=== PATIENT | female | born 1950 | race Caucasian/White ===

== ENCOUNTER 2019-06-15 16:30 | Emergency (ER) | payer MEDICARE ==
[~2019-06-15] VITALS: Ht 152.4 cm; Wt 52.3 kg
[2019-06-15] MEDS ORDERED: ipratropium/albuterol 3ml nebule NEB ONE (16:40)
[2019-06-15] MEDS ORDERED: oxyCODONE/APAP 5-325mg tablet PO ONE (16:40)
[2019-06-15] MEDS ORDERED: predniSONE 20 mg tablet PO ONE (16:40)
[2019-06-15 17:10] LABS: BASOPHILS % (AUTO) 0.4 % (0-1); EOSINOPHILS # (AUTO) 0.1 X10'3 (0-0.9); EOSINOPHILS % (AUTO) 1.1 % (0-6); HEMATOCRIT 36.1 % (35.0-45.0); HEMOGLOBIN 11.9 g/dl (12.0-16.0); LYMPHOCYTES # (AUTO) 2.9 X10'3 (1.1-4.8); LYMPHOCYTES % (AUTO) 42.5 % (21-51); MEAN CORPUSCULAR HEMOGLOBIN 25.7 PG (27.0-31.0); MEAN CORPUSCULAR HGB CONC 32.8 g/dL (33.0-36.5); MEAN CORPUSCULAR VOLUME 78.3 FL (78-98); MEAN PLATELET VOLUME 7.7 FL (7.4-10.4); MONOCYTES # (AUTO) 0.6 X10'3 (0-0.9); MONOCYTES % (AUTO) 8.4 % (2-12); NEUTROPHILS # (AUTO) 3.2 X10'3 (1.8-7.7); NEUTROPHILS % (AUTO) 47.6 % (42-75); PLATELET COUNT 353 X10'3 (140-440); RED BLOOD COUNT 4.62 X10'6 (4.20-5.60); RED CELL DISTRIBUTION WIDTH 19.2 % (11.5-14.5); WHITE BLOOD COUNT 6.8 X10'3 (4.5-11.0)
[2019-06-15 17:20] LABS: ALANINE AMINOTRANSFERASE 13 U/L (12-78); ALBUMIN/GLOBULIN RATIO 0.6 (1.1-1.5); ALKALINE PHOSPHATASE 119 IU/L (46-116); ANION GAP 6 (8-16); ASPARTATE AMINO TRANSFERASE 20 U/L (10-37); BILIRUBIN,TOTAL 0.2 MG/DL (0.1-1.0); BLOOD UREA NITROGEN 11 MG/DL (7-18); BUN/CREATININE RATIO 16.4 (6.6-38.0); CALCIUM 8.6 MG/DL (8.5-10.1); CHLORIDE 106 MMOL/L (99-107); CREATININE 0.67 MG/DL (0.40-0.90); GLUCOSE 111 MG/DL (70-104); SODIUM 143 MMOL/L (135-145); TOTAL CARBON DIOXIDE 31.1 MMOL/L (24-32); TOTAL PROTEIN 7.7 G/DL (6.4-8.2); eGFR 88 ML/MIN
[2019-06-15 17:22] LABS: POTASSIUM 2.9 MMOL/L (3.5-5.1)
[2019-06-15] MEDS ORDERED: potassium Cl 20 mEq SR tablet PO STA (17:26)
[2019-06-15] MEDS ORDERED: GUAI1TBM19 PO (17:29)
[2019-06-15] MEDS ORDERED: AMOX-419 PO (17:29)
[2019-06-15] MEDS ORDERED: PRED20TA PO (17:29)
[2019-06-15] MEDS ORDERED: amox tr/potassium clavulanate 875/125mg TAB PO ONE (17:35)
[2019-06-15 17:44] VITALS: BP 123/74
[2019-06-15 18:00] LABS: ANISOCYTOSIS 2+; MICROCYTOSIS 1+; PLATELET ESTIMATE NORMAL
[2019-06-15 18:01] LABS: ELLIPTOCYTES FEW; HYPOCHROMASIA 1+; STOMATOCYTES 1+
== END 2019-06-15 18:02 | disposition home or self-care (01) ==
LOC: ER 16:32
DX: J20.9 Acute bronchitis, unspecified (principal); J44.1 Chronic obstructive pulmonary disease with (acute) exacerbation; E87.6 Hypokalemia; F41.9 Anxiety disorder, unspecified; Z98.890 Other specified postprocedural states; Z88.8 Allergy status to other drugs, medicaments and biological substances; Z79.2 Long term (current) use of antibiotics; Z79.899 Other long term (current) drug therapy
CPT/HCPCS: 36415; 71046; 80053; 85025; 94640; 99284; J7512; 94760

== ENCOUNTER 2019-07-02 16:45 | Inpatient (IN) | payer MEDICARE ==
[~2019-07-02] VITALS: Ht 152.4 cm; Wt 51.8 kg
[~2019-07-02 16:45] MED LIST: GUAI1TBM19 PO
[2019-07-02] MEDS ORDERED: CefTRIAXone/D5W-Rocephin 1gm 50 ML IV ONE (17:30)
[2019-07-02] MEDS ORDERED: azithromycin/NS 500mg/250ml 250 ML IV ONE (17:30)
[2019-07-02] MEDS ORDERED: methylPREDNISolone sod succ 125mg/2ml vial IV ONE (17:30)
[2019-07-02] MEDS ORDERED: normal saline 1000ML IV soln IVB ONE (17:30)
[2019-07-02 17:32] LABS: BASOPHILS % (AUTO) 0.6 % (0-1); EOSINOPHILS # (AUTO) 0.1 X10'3 (0-0.9); EOSINOPHILS % (AUTO) 1.1 % (0-6); HEMATOCRIT 32.2 % (35.0-45.0); HEMOGLOBIN 10.5 g/dl (12.0-16.0); LYMPHOCYTES # (AUTO) 2.4 X10'3 (1.1-4.8); LYMPHOCYTES % (AUTO) 36.8 % (21-51); MEAN CORPUSCULAR HEMOGLOBIN 25.6 PG (27.0-31.0); MEAN CORPUSCULAR HGB CONC 32.6 g/dL (33.0-36.5); MEAN CORPUSCULAR VOLUME 78.6 FL (78-98); MEAN PLATELET VOLUME 7.6 FL (7.4-10.4); MONOCYTES # (AUTO) 0.7 X10'3 (0-0.9); MONOCYTES % (AUTO) 10.4 % (2-12); NEUTROPHILS # (AUTO) 3.4 X10'3 (1.8-7.7); NEUTROPHILS % (AUTO) 51.1 % (42-75); PLATELET COUNT 344 X10'3 (140-440); RED BLOOD COUNT 4.09 X10'6 (4.20-5.60); RED CELL DISTRIBUTION WIDTH 18.3 % (11.5-14.5); WHITE BLOOD COUNT 6.6 X10'3 (4.5-11.0)
[2019-07-02 17:41] LABS: ALANINE AMINOTRANSFERASE 11 U/L (12-78); ALBUMIN 2.6 G/DL (3.4-5.0); ALBUMIN/GLOBULIN RATIO 0.5 (1.1-1.5); ALKALINE PHOSPHATASE 131 IU/L (46-116); ANION GAP 6 (8-16); ASPARTATE AMINO TRANSFERASE 15 U/L (10-37); BILIRUBIN,TOTAL 0.2 MG/DL (0.1-1.0); BLOOD UREA NITROGEN 10 MG/DL (7-18); BUN/CREATININE RATIO 16.1 (6.6-38.0); CHLORIDE 103 MMOL/L (99-107); CREATININE 0.62 MG/DL (0.40-0.90); GLUCOSE 90 MG/DL (70-104); POTASSIUM 3.2 MMOL/L (3.5-5.1); SODIUM 139 MMOL/L (135-145); TOTAL CARBON DIOXIDE 29.9 MMOL/L (24-32); TOTAL PROTEIN 7.4 G/DL (6.4-8.2); eGFR > 90 ML/MIN
[2019-07-02] MEDS ORDERED: morphine 2 MG/ML inj. syringe IV ONE (17:50)
[2019-07-02] MEDS ORDERED: potassium Cl 20 mEq SR tablet PO ONE (17:50)
[2019-07-02 18:06] LABS: C-REACTIVE PROTEIN 4.04 MG/DL (0.0-0.5); LACTATE DEHYDROGENASE 149 U/L (81-234)
--- NOTE | 2019-07-02 19:46 | NUR ---
DID NOT GIVE METHYLPREDNISONE DUE TO POSS COVID
[2019-07-02] MEDS ORDERED: ondansetron/PF 4mg/2ml inj IV PRN (20:00)
[2019-07-02] MEDS ORDERED: acetaminophen 325mg tablet PO PRN (20:00)
[2019-07-02] MEDS ORDERED: pregabalin 75mg capsule PO ONE (20:40)
[2019-07-02] MEDS ORDERED: FLUC150T66 PO (20:52)
[2019-07-02] MEDS ORDERED: ALB0.5UD IH (20:52)
[2019-07-02] MEDS ORDERED: SUMA25TA35 PO (20:52)
[2019-07-02] MEDS ORDERED: DESV100T12 PO (20:52)
[2019-07-02] MEDS ORDERED: temazepam 15mg capsule PO PRN (21:00)
[2019-07-02] MEDS ORDERED: ESOM20CA PO (21:10)
[2019-07-02] MEDS ORDERED: METH500T6 PO (21:10)
[2019-07-02] MEDS ORDERED: HYDR-4353 PO (21:10)
[2019-07-02] MEDS ORDERED: MONT10TA26 PO (21:10)
[2019-07-02] MEDS ORDERED: UMEC1DIS (21:10)
[2019-07-02] MEDS ORDERED: PROM25TA14 (21:10)
[2019-07-02] MEDS ORDERED: PREG300C PO (21:10)
[2019-07-02] MEDS ORDERED: POTA10TA19 PO (21:10)
[2019-07-02] MEDS ORDERED: CLON-527 PO (21:10)
[2019-07-02] MEDS ORDERED: SUMAtriptan 25 MG tablet PO PRN (21:40)
[2019-07-02] MEDS ORDERED: albuterol 2.5 MG/3 ML nebule NEB PRN (21:40)
[2019-07-02] MEDS ORDERED: pantoprazole 40 MG vial IV ONE (21:45)
[2019-07-02] MEDS: heparin, porcine 5000 units/ml vial SQ SCH (22:04)
--- NOTE | 2019-07-02 22:30 | NUR ---
pt arrived to PCU unit from ER via gurcheryl, pt is alert and oriented, pt does not seem to be in any respiratory distress at the moment, pt is on 3L NC at 95%, pt does not have a fever, will continue to monitor pt
[2019-07-02 22:45] VITALS: BP 126/54
[2019-07-03 02:00] VITALS: BP 113/49
[2019-07-03 05:23] LABS: ALBUMIN 2.5 G/DL (3.4-5.0); ANION GAP 5 (8-16); BLOOD UREA NITROGEN 9 MG/DL (7-18); CALCIUM 9.5 MG/DL (8.5-10.1); CHLORIDE 107 MMOL/L (99-107); CREATININE 0.53 MG/DL (0.40-0.90); GLUCOSE 87 MG/DL (70-104); POTASSIUM 4.1 MMOL/L (3.5-5.1); SODIUM 141 MMOL/L (135-145); TOTAL CARBON DIOXIDE 28.8 MMOL/L (24-32); eGFR > 90 ML/MIN
[2019-07-03 05:45] LABS: BASOPHILS # (AUTO) 0.1 X10'3 (0-0.2); BASOPHILS % (AUTO) 0.9 % (0-1); EOSINOPHILS # (AUTO) 0.1 X10'3 (0-0.9); EOSINOPHILS % (AUTO) 1.2 % (0-6); HEMOGLOBIN 10.3 g/dl (12.0-16.0); LYMPHOCYTES # (AUTO) 2.9 X10'3 (1.1-4.8); LYMPHOCYTES % (AUTO) 46.5 % (21-51); MEAN CORPUSCULAR HEMOGLOBIN 25.5 PG (27.0-31.0); MEAN CORPUSCULAR HGB CONC 32.1 g/dL (33.0-36.5); MEAN CORPUSCULAR VOLUME 79.2 FL (78-98); MEAN PLATELET VOLUME 8.2 FL (7.4-10.4); MONOCYTES # (AUTO) 0.6 X10'3 (0-0.9); MONOCYTES % (AUTO) 9.2 % (2-12); NEUTROPHILS # (AUTO) 2.6 X10'3 (1.8-7.7); NEUTROPHILS % (AUTO) 42.2 % (42-75); PLATELET COUNT 334 X10'3 (140-440); RED BLOOD COUNT 4.04 X10'6 (4.20-5.60); RED CELL DISTRIBUTION WIDTH 18.7 % (11.5-14.5); WHITE BLOOD COUNT 6.2 X10'3 (4.5-11.0)
--- NOTE | 2019-07-03 06:13 | NUR ---
Problems reprioritized. Patient report given, questions answered & plan of care reviewed with Kai PRABHAKAR .
--- NOTE | 2019-07-03 06:26 | NUR ---
Patient in room PCU 3008. I have received report from Agueda PRABHAKAR and had the opportunity to ask questions and assume patient care.
[2019-07-03 07:22] LABS: ANISOCYTOSIS 2+; HYPOCHROMASIA 1+; MICROCYTOSIS 1+; PLATELET ESTIMATE NORMAL; POLYCHROMASIA 1+; STOMATOCYTES 1+; TARGET CELLS FEW
[2019-07-03] MEDS ORDERED: DESVENLAFAXINE PO SCH (08:00)
[2019-07-03 08:33] VITALS: BP 114/42
[2019-07-03] MEDS: heparin, porcine 5000 units/ml vial SQ SCH ×2 (08:36→21:13)
[2019-07-03] MEDS: methylPREDNISolone sod succ/PF 40mg inj. IV SCH ×2 (08:36→21:12)
[2019-07-03] MEDS: potassium chloride 10mEq ER tablet PO SCH (08:37)
[2019-07-03] MEDS: cyclobenzaprine 10mg tablet PO SCH ×2 (08:37)
[2019-07-03] MEDS: montelukast 10mg tablet PO SCH (08:37)
[2019-07-03] MEDS: pregabalin 75mg capsule PO SCH ×2 (08:37→21:12)
[2019-07-03] MEDS: clonazePAM 1mg tablet PO SCH ×2 (08:37→21:12)
--- NOTE | 2019-07-03 10:34 | NUR ---
Patient in room PCU 3008. I have received report from Kai PRABHAKAR and had the opportunity to ask questions and assume patient care.
[2019-07-03 11:00] VITALS: BP 104/55
[2019-07-03] MEDS: HYDROcodone/acetaminophen 10/325mg tab PO PRN ×2 (11:15→21:15)
--- NOTE | 2019-07-03 11:44 | NUR ---
PAGER ID: [phone] MESSAGE: Re: Angela Bran, Room: 3008. Pt takes Methocarbamol 500mg q8hrs for muscle spasms at home. She has Flexeril 10mg q8hrs scheduled but has had a reaction to it in past. Can we order Methocarbamol instead of Flexeril? -[facility] [id number] -Dr. Alejandro paged concerning Pt wanting Methocarbamol instead of flexeril.
[2019-07-03] MEDS: venlafaxine 25mg tablet PO SCH ×2 (12:47→22:08)
--- NOTE | 2019-07-03 14:12 | NUR ---
PAGER ID: [phone] MESSAGE: Re: Angela Bran, Room: 3008. Confirmed with Pt's pharmacy that she does take Methocarbamol 500mg q8hrs for muscle spasms -[facility] #[id number] Dr. Alejandro paged concerning Pt's home dose of Methocarbamol 500mg Q8hrs.
[2019-07-03 15:00] VITALS: BP 124/59
--- NOTE | 2019-07-03 16:11 | NUR ---
Problems reprioritized. Patient report given, questions answered & plan of care reviewed with Tania PRABHAKAR.
[2019-07-03] MEDS ORDERED: azithromycin/NS 500mg/250ml 250 ML IV SCH (17:00)
[2019-07-03 18:00] VITALS: BP 123/63
[2019-07-03] MEDS ORDERED: CefTRIAXone/D5W-Rocephin 1gm 50 ML IV SCH (18:00)
--- NOTE | 2019-07-03 18:20 | NUR ---
Patient in room PCU 3023. I have received report from AKI Taylor and had the opportunity to ask questions and assume patient care.
--- NOTE | 2019-07-03 18:21 | NUR ---
Problems reprioritized. Patient report given, questions answered & plan of care reviewed with Joana PRABHAKAR.
[2019-07-03] MEDS: lactobacillus rhamnosus 10,000 MMU CELLS/CAPSULE PO SCH (21:12)
[2019-07-03 22:00] VITALS: BP 130/64
--- NOTE | 2019-07-03 22:44 | NUR ---
PAGER ID: [phone] MESSAGE: [id number] Josefina Bran: diarrhea for 2 days and says Maddy works for her. Addendum: 07/04/19 at 0100 by Joana Cardona RN MD said to follow up with [facility] doctor for diarrhea. No new orders at this time. Will pass on to handoff nurse.
[2019-07-03] MEDS: METHOCARBAMOL 500MG PO SCH (23:11)
[2019-07-04 02:00] VITALS: BP 143/63
[2019-07-04 06:00] LABS: BASOPHILS % (AUTO) 0.2 % (0-1); EOSINOPHILS % (AUTO) 0 % (0-6); HEMATOCRIT 33.6 % (35.0-45.0); HEMOGLOBIN 10.7 g/dl (12.0-16.0); LYMPHOCYTES # (AUTO) 1.3 X10'3 (1.1-4.8); LYMPHOCYTES % (AUTO) 20.8 % (21-51); MEAN CORPUSCULAR HGB CONC 31.8 g/dL (33.0-36.5); MEAN CORPUSCULAR VOLUME 78.7 FL (78-98); MEAN PLATELET VOLUME 7.9 FL (7.4-10.4); MONOCYTES # (AUTO) 0.2 X10'3 (0-0.9); MONOCYTES % (AUTO) 3.9 % (2-12); NEUTROPHILS # (AUTO) 4.7 X10'3 (1.8-7.7); NEUTROPHILS % (AUTO) 75.1 % (42-75); PLATELET COUNT 387 X10'3 (140-440); RED BLOOD COUNT 4.28 X10'6 (4.20-5.60); RED CELL DISTRIBUTION WIDTH 18.3 % (11.5-14.5); WHITE BLOOD COUNT 6.3 X10'3 (4.5-11.0)
[2019-07-04 06:15] LABS: ALBUMIN 2.6 G/DL (3.4-5.0); ANION GAP 8 (8-16); BLOOD UREA NITROGEN 7 MG/DL (7-18); BUN/CREATININE RATIO 14.3 (6.6-38.0); CALCIUM 10.2 MG/DL (8.5-10.1); CHLORIDE 105 MMOL/L (99-107); CREATININE 0.49 MG/DL (0.40-0.90); GLUCOSE 142 MG/DL (70-104); POTASSIUM 3.7 MMOL/L (3.5-5.1); SODIUM 142 MMOL/L (135-145); TOTAL CARBON DIOXIDE 29.2 MMOL/L (24-32); eGFR > 90 ML/MIN
--- NOTE | 2019-07-04 06:24 | NUR ---
Problems reprioritized. Patient report given, questions answered & plan of care reviewed with AKI Mendez.
[2019-07-04 07:00] VITALS: BP 142/59
--- NOTE | 2019-07-04 07:24 | NUR ---
Patient in room PCU 3023. I have received report from fabiola PRABHAKAR and had the opportunity to ask questions and assume patient care.
[2019-07-04] MEDS: METHOCARBAMOL 500MG PO SCH (08:00)
[2019-07-04] MEDS ORDERED: LEVO500T2 PO (08:42)
[2019-07-04] MEDS: methylPREDNISolone sod succ/PF 40mg inj. IV SCH (08:58)
[2019-07-04] MEDS: montelukast 10mg tablet PO SCH (09:01)
[2019-07-04] MEDS: lactobacillus rhamnosus 10,000 MMU CELLS/CAPSULE PO SCH (09:01)
[2019-07-04] MEDS: venlafaxine 25mg tablet PO SCH (09:01)
[2019-07-04] MEDS: pregabalin 75mg capsule PO SCH (09:01)
[2019-07-04] MEDS: potassium chloride 10mEq ER tablet PO SCH (09:01)
[2019-07-04] MEDS: clonazePAM 1mg tablet PO SCH (09:01)
[2019-07-04] MEDS: heparin, porcine 5000 units/ml vial SQ SCH (09:02)
--- NOTE | 2019-07-04 09:03 | NUR ---
Pt. is being discharged and her robaxin was never brought in therefore she did not receive that this AM during her med pass. made aware.
--- NOTE | 2019-07-04 09:31 | NUR ---
Pt. was cleared to discharge home. Pt. reports feeling much better and is excited to discharge home. Vital signs are stable at time of discharge. New prescription for Levaquin was called into [phone] per the patients request. Patient was transported by yellow cab since she did not have a ride. Pt. stated her daughter would be there to help care for her. Pt. has been sating within normal range on RA even with activity. PIV removed. Pt. left in stable condition.
== END 2019-07-04 09:38 | disposition home or self-care (01) | DRG 192 ==
LOC: ER 16:45 → ED HOLD 20:00 → UNDOADMIN 20:12 → ED HOLD 22:19 → PCU 3S 22:19
PROVIDERS: ADMIT Internal Medicine; ATTEND Internal Medicine
DX: J44.1 Chronic obstructive pulmonary disease with (acute) exacerbation (principal); J44.0 Chronic obstructive pulmonary disease with (acute) lower respiratory infection; F17.210 Nicotine dependence, cigarettes, uncomplicated; J84.10 Pulmonary fibrosis, unspecified; M79.7 Fibromyalgia; F32.9 Major depressive disorder, single episode, unspecified; F41.9 Anxiety disorder, unspecified; G43.909 Migraine, unspecified, not intractable, without status migrainosus; G89.29 Other chronic pain; K21.9 Gastro-esophageal reflux disease without esophagitis; Z89.512 Acquired absence of left leg below knee; Z90.710 Acquired absence of both cervix and uterus; Z88.2 Allergy status to sulfonamides; Z88.8 Allergy status to other drugs, medicaments and biological substances; Z03.818 Encounter for observation for suspected exposure to other biological agents ruled out
CPT/HCPCS: 36415; 71045; 80048; 80053; 83605; 83615; 83880; 84484; 85025; 85610; 86140; 87040; 87081; 87635; 93005; 93306; 96365; 96375; 99285; C9113; G0378; J0456; J0696; J1644; J2270; J2920; J7030

== ENCOUNTER 2022-12-08 21:47 | Inpatient (IN) | payer MEDICARE, MEDICAID ==
[~2022-12-08] VITALS: Ht 165.1 cm; Wt 72.7 kg
[~2022-12-08 21:47] MED LIST changes: +ALB0.5UD IH; +CLON-527 PO; +DESV100T12 PO; +ESOM20CA PO; +HYDR-4353 PO; +METH-797 PO; +MONT-40 PO; +POTA-192 PO; +PREG300C PO; +PROM25TA14; +SUMA25TA35 PO; +UMEC1DIS
--- NOTE | 2022-12-08 23:00 | NUR ---
unable to draw pt's blood d/t hard stick. aware.
[2022-12-08 23:26] LABS: ALANINE AMINOTRANSFERASE 33 U/L (12-78); ALBUMIN 2.8 G/DL (3.4-5.0); ALBUMIN/GLOBULIN RATIO 0.7 (1.1-1.5); ALKALINE PHOSPHATASE 128 IU/L (46-116); ANION GAP 7 (8-16); ASPARTATE AMINO TRANSFERASE 43 U/L (10-37); BILIRUBIN,TOTAL 0.2 MG/DL (0.1-1.0); BLOOD UREA NITROGEN 13 MG/DL (7-18); BUN/CREATININE RATIO 16.3 (10.0-20.0); CHLORIDE 105 MMOL/L (99-107); GLUCOSE 82 MG/DL (70-104); POTASSIUM 3.2 MMOL/L (3.5-5.1); SODIUM 139 MMOL/L (135-145); TOTAL PROTEIN 6.8 G/DL (6.4-8.2); eCRCL 57 ML/MIN; eGFR 71 ML/MIN
[2022-12-08 23:34] LABS: C-REACTIVE PROTEIN 5.34 MG/DL (0.0-0.5); ETHANOL < 10 MG/DL (<10); MAGNESIUM 2.2 MG/DL (1.5-2.4); PRO BRAIN NATRIURETIC PEPTIDE 279 PG/ML (0-125); SALICYLATE 3.2 MG/DL (4.0-20.0)
[2022-12-08 23:35] LABS: BILIRUBIN,URINE NEGATIVE (Neg); CLARITY,URINE CLEAR (Clear); COLOR,URINE STRAW (Yellow); GLUCOSE, URINE NEGATIVE (Neg); KETONES,URINE NEGATIVE (Neg); LEUKOCYTE ESTERASE ,URINE NEGATIVE (Neg); NITRITES, URINE NEGATIVE (Neg); OCCULT BLOOD,URINE TRACE-INTACT (Neg); PROTEIN,URINE NEGATIVE (Neg); UROBILINOGEN,URINE 0.2 E.U/dL (0.2-1.0)
[2022-12-08 23:37] LABS: BASOPHILS # (AUTO) 0.1 X10'3 (0-0.2); BASOPHILS % (AUTO) 0.6 % (0-1); EOSINOPHILS # (AUTO) 0.1 X10'3 (0-0.9); EOSINOPHILS % (AUTO) 0.9 % (0-6); HEMATOCRIT 39.7 % (35.0-45.0); LYMPHOCYTES # (AUTO) 3.5 X10'3 (1.1-4.8); LYMPHOCYTES % (AUTO) 44.2 % (21-51); MEAN CORPUSCULAR HEMOGLOBIN 27.5 PG (27.0-31.0); MEAN CORPUSCULAR HGB CONC 32.7 g/dL (33.0-36.5); MEAN PLATELET VOLUME 9.4 FL (7.4-10.4); MONOCYTES # (AUTO) 1.1 X10'3 (0-0.9); MONOCYTES % (AUTO) 13.1 % (2-12); NEUTROPHILS # (AUTO) 3.3 X10'3 (1.8-7.7); NEUTROPHILS % (AUTO) 41.2 % (42-75); PLATELET COUNT 161 X10'3 (140-440); RED BLOOD COUNT 4.72 X10'6 (4.20-5.60); RED CELL DISTRIBUTION WIDTH 17.4 % (11.5-14.5)
[2022-12-08 23:38] LABS: ACETAMINOPHEN < 2.0 UG/ML (10-30)
[2022-12-08 23:39] LABS: URINE AMPHETAMINE SCREEN NEGATIVE (Neg); URINE BARBITUATE SCREEN NEGATIVE (Neg); URINE BENZODIAZEPINES SCREEN NEGATIVE (Neg); URINE CANNABINOID SCREEN POSITIVE (Neg); URINE COCAINE SCREEN NEGATIVE (Neg); URINE METHADONE SCREEN NEGATIVE (Neg); URINE OPIATE SCREEN POSITIVE (Neg); URINE PHENCYCLIDINE SCREEN NEGATIVE (Neg)
[2022-12-08 23:46] LABS: UA COLLECTION TYPE STRAIGHT CATH
[2022-12-08 23:47] LABS: SQUAMOUS EPITHELIAL CELL,UR NONE SEEN /LPF (FEW)
[2022-12-08 23:48] LABS: BACTERIA,URINE FEW /HPF (Neg); RBC,URINE 0-2 /HPF (0-2); WBC,URINE NONE SEEN /HPF (0-4)
[2022-12-09 03:21] LABS: APTT 32 SECONDS (22-32); INR 1.1 INR
[2022-12-09 03:22] LABS: PROTHROMBIN TIME 11.9 SECONDS (9.0-12.0)
[2022-12-09] MEDS ORDERED: magnesium 4gm in 100ml NS 100 ML IV PRN (04:05)
[2022-12-09] MEDS ORDERED: mag hydrox/Alum hydrox/simeth 30ml oral suspension PO PRN (04:05)
[2022-12-09] MEDS ORDERED: magnesium 2GM in 50ml NS 50 ML IV PRN (04:05)
[2022-12-09] MEDS ORDERED: magnesium hydroxide 30ml (MOM) UD suspension PO PRN (04:05)
[2022-12-09] MEDS ORDERED: diphenhydrAMINE 25mg capsule PO PRN (04:05)
[2022-12-09] MEDS ORDERED: metoclopramide 5 mg/ml inj IV PRN (04:05)
[2022-12-09] MEDS ORDERED: acetaminophen 650mg rectal suppository RC PRN (04:05)
[2022-12-09] MEDS ORDERED: bisacodyl 10mg suppository rectal RC PRN (04:05)
[2022-12-09] MEDS ORDERED: diphenhydrAMINE 50 mg/ml inj IV PRN (04:05)
[2022-12-09] MEDS ORDERED: acetaminophen 325mg tablet PO PRN ×2 (04:05)
[2022-12-09] MEDS ORDERED: magnesium Cl slow-release 64mg tablet PO PRN (04:05)
[2022-12-09] MEDS ORDERED: potassium Cl 40MEQ/1/2NS 520ml 520 ML IV PRN (04:05)
[2022-12-09] MEDS ORDERED: ondansetron 4mg rapidly disintigrating tab PO PRN (04:05)
[2022-12-09] MEDS ORDERED: potassium Cl 20 mEq SR tablet PO PRN ×2 (04:05)
[2022-12-09] MEDS: potassium Cl 20mEq in NS 1,000 ML IV SCH ×2 (04:21→15:26)
[2022-12-09 04:51] LABS: D-DIMER 2.16 MG/L FEU (0-0.50)
[2022-12-09 05:03] LABS: HEMOGLOBIN A1C 5.7 % (4.5-6.2)
[2022-12-09 05:06] LABS: CREATINE KINASE 542 U/L (26-192); LIPASE < 50 U/L (73-393); MAGNESIUM 2.1 MG/DL (1.5-2.4); PHOSPHORUS 3.2 MG/DL (2.3-4.5); POTASSIUM 3.1 MMOL/L (3.5-5.1); PRO BRAIN NATRIURETIC PEPTIDE 350 PG/ML (0-125); THYROID STIMULATING HORMONE 0.37 ulU/ml (0.34-4.50)
--- NOTE | 2022-12-09 05:22 | NUR ---
UNABLE TO DRAW PT LA & BC D/T BEING A HARD STICK. MD AWARE, WILL LET NEXT NURSE KNOW TO DRAW BEFORE ADMIN'ING ANY ABX.
[2022-12-09] MEDS: K and/or MAG REPLACEMENT MC SCH ×2 (08:00→19:32)
[2022-12-09] MEDS: docusate sod 100mg capsule PO SCH ×2 (08:00→20:00)
[2022-12-09] MEDS: heparin, porcine 5000 units/ml vial SQ SCH ×2 (09:45→20:07)
--- NOTE | 2022-12-09 13:25 | NUR ---
Note dariojunior in EDM - 12/09/22 at 1337 by LUIGIZA Reported to Dr. Alejandro pts temp 101.1 during blood transfusion. Pt is without any other transfusion reaction sxs and has been having fevers for quite a while now. Pt to receive prn tylenol PO dose now and to continue transfusion. Transfusion to be discontinued if pt developes rash, flank pain or associated sxs with transfusiona and to receive IV benadryl.
[2022-12-09] MEDS: HYDROcodone/acetaminophen 5mg/325mg tablet PO PRN ×2 (14:04→20:08)
[2022-12-09] MEDS ORDERED: potassium Cl 40MEQ/1/2NS 520ml 520 ML IV ONE (14:05)
[2022-12-09] MEDS: ondansetron/PF 4mg/2ml inj IV PRN (14:10)
[2022-12-09] MEDS ORDERED: CLON1TAB12 PO (15:52)
[2022-12-09] MEDS ORDERED: PREG300C20 PO (15:52)
--- NOTE | 2022-12-09 16:00 | NUR ---
REPORT GIVEN TO AKI FRAIRE, PT TO GO TO ROOM [id number]
--- NOTE | 2022-12-09 16:13 | NUR ---
Patient in room ED 10. I have received report from Swapna RN and had the opportunity to ask questions and assume patient care.
[2022-12-09] MEDS ORDERED: METH-797 PO (16:38)
[2022-12-09] MEDS ORDERED: PROM12.512 PO (16:38)
[2022-12-09] MEDS ORDERED: SUMA100T16 PO (16:39)
[2022-12-09] MEDS ORDERED: ACET-2 PO (16:39)
[2022-12-09] MEDS ORDERED: LEVO5TAB13 PO (16:40)
[2022-12-09] MEDS ORDERED: ESOM20CA38 PO (16:40)
[2022-12-09] MEDS ORDERED: LOPE2CAP PO (16:40)
[2022-12-09] MEDS ORDERED: DESV100T16 PO (16:40)
[2022-12-09] MEDS ORDERED: TIOT4MIS3 INH (16:40)
[2022-12-09] MEDS ORDERED: OXYB-58 PO (16:40)
[2022-12-09] MEDS ORDERED: FOLI1TAB27 PO (16:40)
[2022-12-09 18:00] VITALS: BP 128/68; PULSE 75; RESP 16; TEMP 97.6; O2SAT 100
--- NOTE | 2022-12-09 18:00 | NUR ---
Patient in room ORTHO 4014. I have received report from Sobeida and had the opportunity to ask questions and assume patient care.
--- NOTE | 2022-12-09 18:14 | NUR ---
Problems reprioritized. Patient report given, questions answered & plan of care reviewed with Samantha PRABHAKAR.
[2022-12-09 20:03] VITALS: PULSE 73; RESP 16; O2SAT 99
[2022-12-09 20:07] VITALS: RESP 16; O2SAT 100
[2022-12-09] MEDS: pantoprazole 40mg Tablet.DR PO SCH (20:07)
[2022-12-09] MEDS: pregabalin 75mg capsule PO SCH (20:07)
[2022-12-09] MEDS ORDERED: temazepam 15mg capsule PO PRN (21:00)
[2022-12-09 22:00] VITALS: BP 140/59; PULSE 72; RESP 16; TEMP 97.8; O2SAT 95
[2022-12-09] MEDS: clonazePAM 1mg tablet PO PRN (22:13)
[2022-12-10] VITALS (12 sets, daily range): BP systolic 110–140; BP diastolic 48–71; PULSE 60–98; RESP 14–18; TEMP 97.7–98.4; O2SAT 92–98
[2022-12-10] MEDS: potassium Cl 20mEq in NS 1,000 ML IV SCH ×3 (00:05→22:43)
[2022-12-10] MEDS: HYDROcodone/acetaminophen 5mg/325mg tablet PO PRN ×3 (01:08→12:38)
--- NOTE | 2022-12-10 06:20 | NUR ---
Problems reprioritized. Patient report given, questions answered & plan of care reviewed with AKI Rose.
--- NOTE | 2022-12-10 06:25 | NUR ---
Problems reprioritized. Patient report given, questions answered & plan of care reviewed with Celeste Lora
--- NOTE | 2022-12-10 06:28 | NUR ---
Patient in room ORTHO 4014. I have received report from AKI Singh and had the opportunity to ask questions and assume patient care.
[2022-12-10 07:02] LABS: ALANINE AMINOTRANSFERASE 22 U/L (12-78); ALBUMIN 2.3 G/DL (3.4-5.0); ALBUMIN/GLOBULIN RATIO 0.7 (1.1-1.5); ALKALINE PHOSPHATASE 92 IU/L (46-116); ANION GAP 5 (8-16); ASPARTATE AMINO TRANSFERASE 29 U/L (10-37); BILIRUBIN,TOTAL 0.2 MG/DL (0.1-1.0); BLOOD UREA NITROGEN 6 MG/DL (7-18); BUN/CREATININE RATIO 14.6 (10.0-20.0); CALCIUM 8.2 MG/DL (8.5-10.1); CHLORIDE 112 MMOL/L (99-107); CHOL/HDL RATIO 6.8 (0.00-4.99); CHOLESTEROL 205 MG/DL (0-200); CREATININE 0.41 MG/DL (0.40-0.90); GLUCOSE 74 MG/DL (70-104); HDL CHOLESTEROL 30 MG/DL (35-60); LDL CHOLESTEROL 135 MG/DL (50-100); POTASSIUM 3.6 MMOL/L (3.5-5.1); SODIUM 140 MMOL/L (135-145); TOTAL PROTEIN 5.7 G/DL (6.4-8.2); TRIGLYCERIDES 171 MG/DL (20-135); eCRCL 112 ML/MIN; eGFR > 90 ML/MIN
[2022-12-10 07:12] LABS: BASOPHILS # (AUTO) 0.1 X10'3 (0-0.2); BASOPHILS % (AUTO) 0.9 % (0-1); EOSINOPHILS # (AUTO) 0.3 X10'3 (0-0.9); EOSINOPHILS % (AUTO) 4.4 % (0-6); HEMATOCRIT 34.5 % (35.0-45.0); HEMOGLOBIN 11.3 g/dl (12.0-16.0); LYMPHOCYTES # (AUTO) 2.7 X10'3 (1.1-4.8); LYMPHOCYTES % (AUTO) 42.3 % (21-51); MEAN CORPUSCULAR HEMOGLOBIN 27.2 PG (27.0-31.0); MEAN CORPUSCULAR HGB CONC 32.9 g/dL (33.0-36.5); MEAN CORPUSCULAR VOLUME 82.9 FL (78-98); MEAN PLATELET VOLUME 9.4 FL (7.4-10.4); MONOCYTES # (AUTO) 0.5 X10'3 (0-0.9); MONOCYTES % (AUTO) 8.3 % (2-12); NEUTROPHILS # (AUTO) 2.8 X10'3 (1.8-7.7); NEUTROPHILS % (AUTO) 44.1 % (42-75); PLATELET COUNT 162 X10'3 (140-440); RED BLOOD COUNT 4.16 X10'6 (4.20-5.60); RED CELL DISTRIBUTION WIDTH 17.2 % (11.5-14.5); WHITE BLOOD COUNT 6.3 X10'3 (4.5-11.0)
[2022-12-10] MEDS: K and/or MAG REPLACEMENT MC SCH ×2 (07:50→20:00)
[2022-12-10] MEDS ORDERED: LEVOCETIRIZINE DIHYDROCHLORIDE PO SCH (08:00)
[2022-12-10] MEDS: docusate sod 100mg capsule PO SCH ×2 (08:00→20:00)
[2022-12-10] MEDS: pregabalin 75mg capsule PO SCH ×2 (08:05→21:49)
[2022-12-10] MEDS: folic acid 1mg tablet PO SCH (08:05)
[2022-12-10] MEDS: oxybutynin 5mg tablet PO SCH (08:06)
[2022-12-10] MEDS: heparin, porcine 5000 units/ml vial SQ SCH ×2 (08:07→20:08)
[2022-12-10] MEDS: pantoprazole 40mg Tablet.DR PO SCH ×2 (08:07→21:48)
[2022-12-10] MEDS: ipratropium/albuterol 3ml nebule NEB SCH ×4 (09:17→20:51)
[2022-12-10] MEDS: clonazePAM 1mg tablet PO PRN ×2 (11:57→21:49)
--- NOTE | 2022-12-10 18:30 | NUR ---
Problems reprioritized. Patient report given, questions answered & plan of care reviewed with AKI Rose.
--- NOTE | 2022-12-10 18:35 | NUR ---
Patient in room ORTHO 4014. I have received report from ELIECER PRABHAKAR and had the opportunity to ask questions and assume patient care.
[2022-12-10] MEDS: ondansetron/PF 4mg/2ml inj IV PRN (20:06)
--- NOTE | 2022-12-10 21:55 | NUR ---
Patient report given, questions answered & plan of care reviewed with JETT PRABHAKAR.
--- NOTE | 2022-12-10 22:00 | NUR ---
Change of assignment. Received report from Milton PRABHAKAR and assuming care.
--- NOTE | 2022-12-10 22:59 | NUR ---
Patient c/o unresolved nausea. MD gave new order of 1 x dose of 8mg zofran IV now.
[2022-12-10] MEDS ORDERED: ondansetron/PF 4mg/2ml inj IV ONE (23:00)
[2022-12-11] VITALS (13 sets, daily range): BP systolic 108–155; BP diastolic 69–82; PULSE 60–83; RESP 16–20; TEMP 97.3–98.5; O2SAT 93–97
[2022-12-11] MEDS: ipratropium/albuterol 3ml nebule NEB SCH ×4 (02:53→19:55)
--- NOTE | 2022-12-11 06:30 | NUR ---
Problems reprioritized. Patient report given, questions answered & plan of care reviewed with Nori JUÁREZ.
--- NOTE | 2022-12-11 06:30 | NUR ---
Patient in room ORTHO 4014. I have received report from Isabel PRABHAKAR and had the opportunity to ask questions and assume patient care.
[2022-12-11 06:55] LABS: BASOPHILS % (AUTO) 0.6 % (0-1); EOSINOPHILS # (AUTO) 0.2 X10'3 (0-0.9); EOSINOPHILS % (AUTO) 2.8 % (0-6); HEMATOCRIT 35.6 % (35.0-45.0); HEMOGLOBIN 11.8 g/dl (12.0-16.0); LYMPHOCYTES # (AUTO) 2.3 X10'3 (1.1-4.8); LYMPHOCYTES % (AUTO) 31.3 % (21-51); MEAN CORPUSCULAR HEMOGLOBIN 27.2 PG (27.0-31.0); MEAN CORPUSCULAR HGB CONC 33.1 g/dL (33.0-36.5); MEAN CORPUSCULAR VOLUME 82.1 FL (78-98); MONOCYTES # (AUTO) 0.5 X10'3 (0-0.9); MONOCYTES % (AUTO) 7.1 % (2-12); NEUTROPHILS # (AUTO) 4.3 X10'3 (1.8-7.7); NEUTROPHILS % (AUTO) 58.2 % (42-75); PLATELET COUNT 185 X10'3 (140-440); RED BLOOD COUNT 4.33 X10'6 (4.20-5.60); RED CELL DISTRIBUTION WIDTH 17.3 % (11.5-14.5); WHITE BLOOD COUNT 7.4 X10'3 (4.5-11.0)
[2022-12-11] MEDS: potassium Cl 20mEq in NS 1,000 ML IV SCH ×2 (07:00→21:43)
[2022-12-11 07:18] LABS: ALANINE AMINOTRANSFERASE 26 U/L (12-78); ALBUMIN 2.4 G/DL (3.4-5.0); ALBUMIN/GLOBULIN RATIO 0.7 (1.1-1.5); ALKALINE PHOSPHATASE 95 IU/L (46-116); ANION GAP 6 (8-16); ASPARTATE AMINO TRANSFERASE 25 U/L (10-37); BILIRUBIN,TOTAL 0.2 MG/DL (0.1-1.0); BLOOD UREA NITROGEN 3 MG/DL (7-18); BUN/CREATININE RATIO 6.4 (10.0-20.0); CHLORIDE 111 MMOL/L (99-107); CREATININE 0.47 MG/DL (0.40-0.90); GLUCOSE 100 MG/DL (70-104); POTASSIUM 3.7 MMOL/L (3.5-5.1); SODIUM 142 MMOL/L (135-145); TOTAL CARBON DIOXIDE 24.8 MMOL/L (24-32); TOTAL PROTEIN 5.9 G/DL (6.4-8.2); eCRCL 97 ML/MIN; eGFR > 90 ML/MIN
[2022-12-11] MEDS: K and/or MAG REPLACEMENT MC SCH ×2 (08:00→20:00)
[2022-12-11] MEDS: docusate sod 100mg capsule PO SCH ×2 (08:00→20:00)
[2022-12-11] MEDS: oxybutynin 5mg tablet PO SCH (08:20)
[2022-12-11] MEDS: pantoprazole 40mg Tablet.DR PO SCH ×2 (08:21→21:50)
[2022-12-11] MEDS: pregabalin 75mg capsule PO SCH ×2 (08:21→21:50)
[2022-12-11] MEDS: folic acid 1mg tablet PO SCH (08:21)
[2022-12-11] MEDS: heparin, porcine 5000 units/ml vial SQ SCH ×2 (08:23→21:48)
[2022-12-11] MEDS: clonazePAM 1mg tablet PO PRN ×2 (10:14→21:50)
--- NOTE | 2022-12-11 12:41 | NUR ---
Patient verbalized to a [facility] nursing home assistant that she has Mj in her bag along with a IV bottle of zofran. I asked the patient to put her Mj and zofran bottle on the side table. I advised patient the security will be taking this from her and patient has been compliant.
[2022-12-11] MEDS: HYDROcodone/acetaminophen 5mg/325mg tablet PO PRN (14:16)
[2022-12-11 15:48] LABS: C DIFF ANTIGEN POSITIVE (NEGATIVE); C DIFF SPECIMEN=DIARRHEA? ACCEPTABLE; C DIFFICILE TOXINS A&B POSITIVE (Neg)
--- NOTE | 2022-12-11 16:02 | NUR ---
PAGER ID: [phone] MESSAGE: [id number] Jeronimo Bran- patient is c-diff ( + ). PLs advise? SADIQ Vidales [phone]
--- NOTE | 2022-12-11 17:46 | NUR ---
PAGER ID: [phone] MESSAGE: [id number]- Jeronimo Bran- is it ok to tell patient what her stool sample results are? Pls advise? SADIQ Vidales [id number]
--- NOTE | 2022-12-11 18:00 | NUR ---
I have reviewed and agree with interventions, assessments, and documentation by Sobeida Cortes LVN.
--- NOTE | 2022-12-11 18:11 | NUR ---
Problems reprioritized. Patient report given, questions answered & plan of care reviewed with Isabel PRABHAKAR.
--- NOTE | 2022-12-11 18:25 | NUR ---
Patient in room ORTHO 4014. I have received report from Nori JUÁREZ and had the opportunity to ask questions and assume patient care.
[2022-12-11] MEDS: ondansetron/PF 4mg/2ml inj IV PRN (21:34)
[2022-12-11] MEDS: morphine 2 MG/ML inj. syringe IV PRN (21:41)
[2022-12-11] MEDS: vancomycin 125mg/5ml ORAL solution 5ml UD oral syringe PO SCH (21:47)
[2022-12-12] VITALS (12 sets, daily range): BP systolic 129–148; BP diastolic 61–77; PULSE 69–78; RESP 16–18; TEMP 97.8–98.6; O2SAT 91–99
[2022-12-12] MEDS: HYDROcodone/acetaminophen 5mg/325mg tablet PO PRN ×3 (00:06→12:29)
[2022-12-12] MEDS: vancomycin 125mg/5ml ORAL solution 5ml UD oral syringe PO SCH ×4 (02:14→19:26)
[2022-12-12] MEDS: potassium Cl 20mEq in NS 1,000 ML IV SCH ×3 (02:17→12:29)
[2022-12-12] MEDS: ipratropium/albuterol 3ml nebule NEB SCH ×4 (03:44→21:42)
--- NOTE | 2022-12-12 06:30 | NUR ---
Problems reprioritized. Patient report given, questions answered & plan of care reviewed with Buffy PRABHAKAR.
[2022-12-12 07:04] LABS: BASOPHILS % (AUTO) 0.7 % (0-1); EOSINOPHILS # (AUTO) 0.2 X10'3 (0-0.9); EOSINOPHILS % (AUTO) 3.6 % (0-6); HEMATOCRIT 36.5 % (35.0-45.0); HEMOGLOBIN 12.1 g/dl (12.0-16.0); LYMPHOCYTES % (AUTO) 35.1 % (21-51); MEAN CORPUSCULAR HEMOGLOBIN 27.4 PG (27.0-31.0); MEAN CORPUSCULAR HGB CONC 33.2 g/dL (33.0-36.5); MEAN CORPUSCULAR VOLUME 82.6 FL (78-98); MEAN PLATELET VOLUME 8.7 FL (7.4-10.4); MONOCYTES # (AUTO) 0.5 X10'3 (0-0.9); MONOCYTES % (AUTO) 8.9 % (2-12); NEUTROPHILS # (AUTO) 2.9 X10'3 (1.8-7.7); NEUTROPHILS % (AUTO) 51.7 % (42-75); PLATELET COUNT 189 X10'3 (140-440); RED BLOOD COUNT 4.42 X10'6 (4.20-5.60); RED CELL DISTRIBUTION WIDTH 17.3 % (11.5-14.5); WHITE BLOOD COUNT 5.6 X10'3 (4.5-11.0)
[2022-12-12 07:33] LABS: ALANINE AMINOTRANSFERASE 25 U/L (12-78); ALBUMIN 2.7 G/DL (3.4-5.0); ALBUMIN/GLOBULIN RATIO 0.8 (1.1-1.5); ALKALINE PHOSPHATASE 106 IU/L (46-116); ANION GAP 7 (8-16); ASPARTATE AMINO TRANSFERASE 27 U/L (10-37); BILIRUBIN,TOTAL 0.2 MG/DL (0.1-1.0); BLOOD UREA NITROGEN 3 MG/DL (7-18); BUN/CREATININE RATIO 5.3 (10.0-20.0); CALCIUM 9.2 MG/DL (8.5-10.1); CHLORIDE 108 MMOL/L (99-107); CREATININE 0.57 MG/DL (0.40-0.90); GLUCOSE 106 MG/DL (70-104); POTASSIUM 3.3 MMOL/L (3.5-5.1); SODIUM 142 MMOL/L (135-145); TOTAL CARBON DIOXIDE 26.8 MMOL/L (24-32); TOTAL PROTEIN 6.3 G/DL (6.4-8.2); eCRCL 80 ML/MIN; eGFR > 90 ML/MIN
[2022-12-12] MEDS: pregabalin 75mg capsule PO SCH ×2 (07:55→19:26)
[2022-12-12] MEDS: pantoprazole 40mg Tablet.DR PO SCH ×2 (07:55→19:26)
[2022-12-12] MEDS: oxybutynin 5mg tablet PO SCH (07:55)
[2022-12-12] MEDS: folic acid 1mg tablet PO SCH (07:55)
[2022-12-12] MEDS: heparin, porcine 5000 units/ml vial SQ SCH ×2 (07:55→18:41)
[2022-12-12] MEDS: docusate sod 100mg capsule PO SCH ×2 (07:56→18:41)
[2022-12-12] MEDS: K and/or MAG REPLACEMENT MC SCH ×2 (08:00→18:41)
[2022-12-12] MEDS: clonazePAM 1mg tablet PO PRN ×2 (08:02→17:53)
[2022-12-12] MEDS: ondansetron/PF 4mg/2ml inj IV PRN (12:29)
[2022-12-12] MEDS ORDERED: magnesium 4gm in 100ml NS 100 ML IV PRN (15:20)
[2022-12-12] MEDS ORDERED: magnesium 2GM in 50ml NS 50 ML IV PRN (15:20)
[2022-12-12] MEDS ORDERED: magnesium Cl slow-release 64mg tablet PO PRN (15:20)
[2022-12-12] MEDS ORDERED: potassium Cl 20 mEq SR tablet PO PRN (15:20)
[2022-12-12] MEDS: potassium Cl 20 mEq SR tablet PO PRN ×2 (15:26→19:45)
[2022-12-12] MEDS: morphine 2 MG/ML inj. syringe IV PRN (19:27)
[2022-12-13] VITALS (7 sets, daily range): BP systolic 144–146; BP diastolic 53–76; PULSE 70–85; RESP 15–18; TEMP 97.6–98.7; O2SAT 94–95
[2022-12-13] MEDS: vancomycin 125mg/5ml ORAL solution 5ml UD oral syringe PO SCH ×3 (00:54→14:06)
[2022-12-13] MEDS: HYDROcodone/acetaminophen 5mg/325mg tablet PO PRN ×2 (00:55→09:15)
[2022-12-13] MEDS: clonazePAM 1mg tablet PO PRN ×2 (00:55→09:15)
[2022-12-13] MEDS: ondansetron/PF 4mg/2ml inj IV PRN (02:21)
[2022-12-13] MEDS: ipratropium/albuterol 3ml nebule NEB SCH ×3 (03:00→13:58)
--- NOTE | 2022-12-13 06:08 | NUR ---
Problems reprioritized. Patient report given, questions answered & plan of care reviewed with Sol JUÁREZ. Addendum: 12/13/22 at 0609 by Monet Martinez RN Amended: Links added.
[2022-12-13 06:13] LABS: BASOPHILS % (AUTO) 0.7 % (0-1); EOSINOPHILS # (AUTO) 0.3 X10'3 (0-0.9); EOSINOPHILS % (AUTO) 4.2 % (0-6); HEMATOCRIT 35.1 % (35.0-45.0); HEMOGLOBIN 11.8 g/dl (12.0-16.0); LYMPHOCYTES # (AUTO) 2.3 X10'3 (1.1-4.8); LYMPHOCYTES % (AUTO) 37.8 % (21-51); MEAN CORPUSCULAR HEMOGLOBIN 27.7 PG (27.0-31.0); MEAN CORPUSCULAR HGB CONC 33.6 g/dL (33.0-36.5); MEAN CORPUSCULAR VOLUME 82.5 FL (78-98); MEAN PLATELET VOLUME 8.8 FL (7.4-10.4); MONOCYTES # (AUTO) 0.5 X10'3 (0-0.9); MONOCYTES % (AUTO) 8.1 % (2-12); NEUTROPHILS % (AUTO) 49.2 % (42-75); PLATELET COUNT 200 X10'3 (140-440); RED BLOOD COUNT 4.25 X10'6 (4.20-5.60); RED CELL DISTRIBUTION WIDTH 17.4 % (11.5-14.5)
--- NOTE | 2022-12-13 06:21 | NUR ---
Problems reprioritized. Patient report given, questions answered & plan of care reviewed with GERI PRABHAKAR. Addendum: 12/13/22 at 0621 by Monet Martinez RN Amended: Links added.
[2022-12-13 06:26] LABS: ALANINE AMINOTRANSFERASE 27 U/L (12-78); ALBUMIN 2.7 G/DL (3.4-5.0); ALBUMIN/GLOBULIN RATIO 0.7 (1.1-1.5); ALKALINE PHOSPHATASE 116 IU/L (46-116); ANION GAP 8 (8-16); ASPARTATE AMINO TRANSFERASE 29 U/L (10-37); BILIRUBIN,TOTAL 0.2 MG/DL (0.1-1.0); BLOOD UREA NITROGEN 2 MG/DL (7-18); BUN/CREATININE RATIO 3.4 (10.0-20.0); CALCIUM 9.5 MG/DL (8.5-10.1); CHLORIDE 109 MMOL/L (99-107); CREATININE 0.59 MG/DL (0.40-0.90); GLUCOSE 93 MG/DL (70-104); POTASSIUM 3.8 MMOL/L (3.5-5.1); SODIUM 143 MMOL/L (135-145); TOTAL CARBON DIOXIDE 25.6 MMOL/L (24-32); TOTAL PROTEIN 6.4 G/DL (6.4-8.2); eCRCL 78 ML/MIN; eGFR > 90 ML/MIN
--- NOTE | 2022-12-13 06:30 | NUR ---
Patient in room ORTHO 4014. I have received report from Monet PRABHAKAR and had the opportunity to ask questions and assume patient care.
[2022-12-13] MEDS: K and/or MAG REPLACEMENT MC SCH (07:15)
[2022-12-13] MEDS: docusate sod 100mg capsule PO SCH (08:00)
[2022-12-13] MEDS: potassium Cl 20mEq in NS 1,000 ML IV SCH ×2 (08:05→15:32)
[2022-12-13] MEDS: heparin, porcine 5000 units/ml vial SQ SCH (09:14)
[2022-12-13] MEDS: folic acid 1mg tablet PO SCH (09:15)
[2022-12-13] MEDS: pregabalin 75mg capsule PO SCH (09:15)
[2022-12-13] MEDS: oxybutynin 5mg tablet PO SCH (09:15)
[2022-12-13] MEDS: pantoprazole 40mg Tablet.DR PO SCH (09:15)
--- NOTE | 2022-12-13 13:03 | NUR ---
Initial: Pt presents with syncopal episode per MD. Currently on regular diet and consuming 59% PO intake of meals and meeting 100% of estimated nutrient needs. LBM 12/13 with GI symptoms of nausea and diarrhea with findings of c diff colitis per results 12/11 per EMR. No nutrition intervention implemented at this time. Will continue to follow and make recommendations as appropriate. Recs: 1. Continue regular diet 2. Bowel care PRN 3. scaled weight, subsequent weekly weights Addendum: 12/13/22 at 1304 by Audelia Dale Copier Operator RD Amended: Links added. Addendum: 12/13/22 at [address] I have reviewed and agree with note by international representativeTomas Ibarra RD
[2022-12-13] MEDS ORDERED: CLON1TAB12 PO (16:15)
[2022-12-13] MEDS ORDERED: VANC125C5 PO (16:15)
[2022-12-13] MEDS ORDERED: OXYB-58 PO (16:15)
[2022-12-13] MEDS ORDERED: LEVO5TAB13 PO (16:15)
[2022-12-13] MEDS ORDERED: PREG300C20 PO (16:15)
[2022-12-13] MEDS ORDERED: HYDR-3964 PO (16:15)
[2022-12-13] MEDS ORDERED: SUMA100T16 PO (16:15)
[2022-12-13] MEDS ORDERED: ESOM20CA38 PO (16:15)
[2022-12-13] MEDS ORDERED: TIOT4MIS3 INH (16:15)
[2022-12-13] MEDS ORDERED: DESV100T16 PO (16:15)
[2022-12-13] MEDS ORDERED: PROM12.512 PO (16:15)
[2022-12-13] MEDS ORDERED: FOLI1TAB27 PO (16:15)
--- NOTE | 2022-12-13 18:15 | NUR ---
Problems reprioritized. Patient report given, questions answered & plan of care reviewed with Monet PRABHAKAR.
--- NOTE | 2022-12-13 18:30 | NUR ---
Patient left during shift change, wheeled down in wheelchair by aide, ABC cab to brain picker. Pt was given all her belonging and all her medications with some to brain picker from the pharmacy. Nothing for oncoming nurse to do as discharge instructions given by dayshift and IV was removed by dayshift nurse as well.
== END 2022-12-13 18:45 | disposition home or self-care (01) | DRG 371 ==
LOC: ER 21:48 → ED HOLD 12-09 04:08 → ORTHO 4S 12-09 16:33
PROVIDERS: ADMIT Family Medicine; ATTEND Family Medicine
DX: A04.72 Enterocolitis due to Clostridium difficile, not specified as recurrent (principal); G93.41 Metabolic encephalopathy; J96.01 Acute respiratory failure with hypoxia; N17.9 Acute kidney failure, unspecified; I50.32 Chronic diastolic (congestive) heart failure; E86.0 Dehydration; E78.5 Hyperlipidemia, unspecified; M79.7 Fibromyalgia; J84.10 Pulmonary fibrosis, unspecified; G89.4 Chronic pain syndrome; F12.10 Cannabis abuse, uncomplicated; K21.9 Gastro-esophageal reflux disease without esophagitis; Z20.822 Contact with and (suspected) exposure to COVID-19; G43.909 Migraine, unspecified, not intractable, without status migrainosus; N18.9 Chronic kidney disease, unspecified; F32.A Depression, unspecified; F41.1 Generalized anxiety disorder; N32.81 Overactive bladder; E86.1 Hypovolemia; E87.6 Hypokalemia; J44.9 Chronic obstructive pulmonary disease, unspecified; Z88.2 Allergy status to sulfonamides; Z88.8 Allergy status to other drugs, medicaments and biological substances; Z79.899 Other long term (current) drug therapy; Z99.3 Dependence on wheelchair; Z89.512 Acquired absence of left leg below knee; Z59.00 Homelessness unspecified; Z87.891 Personal history of nicotine dependence; I27.20 Pulmonary hypertension, unspecified
CPT/HCPCS: 36415; 70450; 71045; 80053; 80061; 80305; 80320; 80329; 81001; 82550; 83036; 83605; 83690; 83735; 83880; 84100; 84132; 84145; 84443; 84484; 85025; 85379; 85610; 85730; 86140; 87040; 87081; 87324; 87449; 87811; 93306; 94640; 94760; 97161; 97530; 99285; C1758; G0378; J1644; J2270; J2405; J2765; J3480

== ENCOUNTER 2023-03-07 15:02 | Emergency (ER) | payer MEDICARE, MEDICAID ==
[~2023-03-07] VITALS: Ht 149.9 cm; Wt 38.6 kg
[~2023-03-07 15:02] MED LIST changes: -ALB0.5UD IH; -CLON-527 PO; +CLON1TAB12 PO; -DESV100T12 PO; +DESV100T16 PO; -ESOM20CA PO; +ESOM20CA38 PO; +FOLI1TAB27 PO; -GUAI1TBM19 PO; +HYDR-3964 PO; -HYDR-4353 PO; +LEVO5TAB13 PO; -MONT-40 PO; +OXYB-58 PO; -POTA-192 PO; -PREG300C PO; +PREG300C20 PO; +PROM12.512 PO; -PROM25TA14; +SUMA100T16 PO; -SUMA25TA35 PO; +TIOT4MIS3 INH; -UMEC1DIS
[2023-03-07] MEDS ORDERED: HYDROcodone/acetaminophen 10/325mg tab PO ONE (15:30)
[2023-03-07] MEDS ORDERED: LIDO700A32 TOP (16:10)
[2023-03-07] MEDS ORDERED: CYCL-1 PO (16:10)
[2023-03-07 17:18] VITALS: BP 110/84; PULSE 92; TEMP 98.5; O2SAT 96
[2023-03-07 17:21] VITALS: RESP 14
== END 2023-03-07 17:42 | disposition home or self-care (01) ==
LOC: ER 15:03
DX: M54.41 Lumbago with sciatica, right side (principal); M25.512 Pain in left shoulder; M62.838 Other muscle spasm; G89.29 Other chronic pain; M79.7 Fibromyalgia; J44.9 Chronic obstructive pulmonary disease, unspecified; Z79.899 Other long term (current) drug therapy; Z88.8 Allergy status to other drugs, medicaments and biological substances; Z89.512 Acquired absence of left leg below knee
CPT/HCPCS: 72131; 73030; 99284

== ENCOUNTER 2023-05-13 22:57 | Emergency (ER) | payer MEDICARE, MEDICAID ==
[~2023-05-13] VITALS: Ht 149.9 cm; Wt 45.5 kg
[~2023-05-13 22:57] MED LIST changes: +DOCU-148 PO; +LIDO700A32 TOP
[2023-05-13] MEDS: ketorolac trometh inj. 60 MG/2 ML VIAL IM ONE (23:47)
[2023-05-13] MEDS: ondansetron 4mg rapidly disintigrating tab PO ONE (23:48)
[2023-05-13] MEDS: HYDROcodone/acetaminophen 5mg/325mg tablet PO ONE (23:48)
[2023-05-13] MEDS ORDERED: HYDR-3965 PO (23:59)
[2023-05-14 00:14] VITALS: BP 110/64; PULSE 69; RESP 16; TEMP 97.8; O2SAT 98
== END 2023-05-14 00:17 | disposition home or self-care (01) ==
LOC: ER 22:58
DX: M54.50 Low back pain, unspecified (principal); J44.9 Chronic obstructive pulmonary disease, unspecified; F12.90 Cannabis use, unspecified, uncomplicated; Y99.8 Other external cause status; Z88.2 Allergy status to sulfonamides; Z88.1 Allergy status to other antibiotic agents; Z88.8 Allergy status to other drugs, medicaments and biological substances; Z79.899 Other long term (current) drug therapy; Z79.2 Long term (current) use of antibiotics; W19.XXXA Unspecified fall, initial encounter; Y93.89 Activity, other specified; Y92.89 Other specified places as the place of occurrence of the external cause
CPT/HCPCS: 72100; 96372; 99284; J1885

== ENCOUNTER 2023-06-19 18:27 | Emergency (ER) | payer MEDICARE, MEDICAID ==
[~2023-06-19] VITALS: Ht 149.9 cm; Wt 37.4 kg
[2023-06-19 18:35] VITALS: TEMP 97.4
[2023-06-19 21:33] LABS: BASOPHILS # (AUTO) 0.1 X10'3 (0-0.2); BASOPHILS % (AUTO) 0.9 % (0-1); EOSINOPHILS # (AUTO) 0.2 X10'3 (0-0.9); EOSINOPHILS % (AUTO) 2.1 % (0-6); HEMATOCRIT 39.2 % (35.0-45.0); HEMOGLOBIN 13.2 g/dl (12.0-16.0); LYMPHOCYTES # (AUTO) 2.7 X10'3 (1.1-4.8); LYMPHOCYTES % (AUTO) 29.4 % (21-51); MEAN CORPUSCULAR HEMOGLOBIN 26.1 PG (27.0-31.0); MEAN CORPUSCULAR HGB CONC 33.7 g/dL (33.0-36.5); MEAN CORPUSCULAR VOLUME 77.6 FL (78-98); MEAN PLATELET VOLUME 8.7 FL (7.4-10.4); MONOCYTES # (AUTO) 0.6 X10'3 (0-0.9); MONOCYTES % (AUTO) 7.2 % (2-12); NEUTROPHILS # (AUTO) 5.5 X10'3 (1.8-7.7); NEUTROPHILS % (AUTO) 60.4 % (42-75); PLATELET COUNT 207 X10'3 (140-440); RED BLOOD COUNT 5.06 X10'6 (4.20-5.60); RED CELL DISTRIBUTION WIDTH 16.9 % (11.5-14.5)
[2023-06-19 21:34] VITALS: BP 155/81; PULSE 66; RESP 14; O2SAT 96
[2023-06-19 21:43] LABS: ALBUMIN 2.5 G/DL (3.4-5.0); ANION GAP 5 (8-16); BLOOD UREA NITROGEN 6 MG/DL (7-18); BUN/CREATININE RATIO 9.4 (10.0-20.0); C-REACTIVE PROTEIN 0.47 MG/DL (0.0-0.5); CALCIUM 8.5 MG/DL (8.5-10.1); CHLORIDE 105 MMOL/L (99-107); CREATININE 0.64 MG/DL (0.40-0.90); GLUCOSE 79 MG/DL (70-104); SODIUM 143 MMOL/L (135-145); TOTAL CARBON DIOXIDE 33.3 MMOL/L (24-32); eCRCL 47 ML/MIN; eGFR > 90 ML/MIN
[2023-06-19] MEDS ORDERED: CYCL-1 PO (22:51)
[2023-06-19] MEDS ORDERED: NAPR-56 PO (22:51)
[2023-06-19] MEDS ORDERED: LIDO1ADH78 TOP (22:51)
[2023-06-19] MEDS: potassium Cl 20 mEq SR tablet PO STA (22:57)
== END 2023-06-20 01:25 | disposition home or self-care (01) ==
LOC: ER 18:28
DX: M25.551 Pain in right hip (principal); M25.451 Effusion, right hip; J44.9 Chronic obstructive pulmonary disease, unspecified; M19.90 Unspecified osteoarthritis, unspecified site; F12.90 Cannabis use, unspecified, uncomplicated; Z88.2 Allergy status to sulfonamides; Z88.6 Allergy status to analgesic agent; Z79.899 Other long term (current) drug therapy
CPT/HCPCS: 36415; 72192; 73502; 80048; 85025; 85651; 86140; 99284